=== PATIENT | female | born 2000 | race Caucasian/White ===

== ENCOUNTER 2022-05-11 08:07 | Outpatient (CLI) | payer BC, SELFPAY ==
--- NOTE | ~2022-05-11 | US_ITS ---
EXAMINATION: US breast LT limited HISTORY: Palpable lump in the upper outer quadrant of the left breast TECHNIQUE: Limited left breast ultrasound is performed. FINDINGS: There is a questionable 12 mm x 3 mm oval, circumscribed, parallel, hypoechoic mass at the 11:30 location 7 cm from the nipple in the area of palpable concern. IMPRESSION: Probably benign finding of the left breast. Continued clinical follow-up and follow-up targeted left breast ultrasound in six months are recommended. BI-RADS category 3, probably benign findings. Reviewed, dictated and finalized at location A. [employer] IMPRESSION: Probably benign finding of the left breast. Continued clinical follow-up and fo llow-up targeted left breast ultrasound in six months are recommended. BI-RADS category 3, probably benign findings.
== END 2022-05-11 08:08 ==
PROVIDERS: PCP Nurse Practitioner Family; Visit Provider Nurse Practitioner Family
DX: N63.25 Unspecified lump in the left breast, overlapping quadrants (principal); R92.8 Other abnormal and inconclusive findings on diagnostic imaging of breast
CPT/HCPCS: 76642

== ENCOUNTER → 2022-11-08 08:21 | Outpatient (CLI) | payer BC, SELFPAY ==
--- NOTE | ~2022-11-08 | US_ITS ---
EXAMINATION: US breast LT limited HISTORY: Six-month follow-up for probably benign left breast mass TECHNIQUE: Limited left breast ultrasound is performed. COMPARISON: 05/11/2022 FINDINGS: There is a stable 12 mm x 3 mm oval, circumscribed, parallel, hypoechoic area of the left b reast at the 11:30 location 7 cm from the nipple with no posterior features or internal vascularity. There has been no suspicious interval change. IMPRESSION: Stable, probably benign finding of the left breast. Continued clinical follow-up and targeted left br east ultrasound in six months are recommended. BI-RADS category 3, probably benign findings. Reviewed, dictated and finalized at location A. IMPRESSION: Stable, probably benign finding of the left breast. Continued clinical follow-u p and targeted left breast ultrasound in six months are recommended. BI-RADS category 3, probably benign findings.
== END ==
PROVIDERS: PCP Nurse Practitioner Family; Visit Provider Nurse Practitioner Family
DX: N63.25 Unspecified lump in the left breast, overlapping quadrants (principal); R92.8 Other abnormal and inconclusive findings on diagnostic imaging of breast
CPT/HCPCS: 76642

== ENCOUNTER 2023-09-26 08:00 | Outpatient (CLI) | payer OTHER, SELFPAY ==
--- NOTE | ~2023-09-26 | US_ITS ---
US breast LT limited INDICATION: Six-month follow-up left breast cyst TECHNIQUE: Dedicated Limited left breast ultrasound COMPARISON: Comparison to multiple prior studies sequentially, with oldest reviewed study dated 09/2022. FINDINGS: The left breast is composed of normal heterogeneous echotexture without focal solid or cyst ic mass. Interval resolution of complicated cysts seen on prior examination. IMPRESSION: 1: Normal left breast ultrasound. BI-RADS CATEGORY 1 - NEGATIVE Reviewed, dictated and finalized at location A.
== END 2023-09-26 08:01 ==
PROVIDERS: PCP Nurse Practitioner Family; Visit Provider Nurse Practitioner Family
DX: N63.25 Unspecified lump in the left breast, overlapping quadrants (principal)
CPT/HCPCS: 76642